=== PATIENT | male | born 1995 | race American Indian/Alaskan Native ===

== ENCOUNTER 2018-03-19 04:16 | Emergency (ER) | payer SELFPAY ==
[2018-03-19 04:33] VITALS: BP 92/61
== END 2018-03-19 07:18 | disposition left against medical advice (07) ==
LOC: ED 04:16
DX: H57.8 Other specified disorders of eye and adnexa (principal); Z53.21 Procedure and treatment not carried out due to patient leaving prior to being seen by health care provider

== ENCOUNTER 2018-03-23 16:49 | Emergency (ER) | payer SELFPAY ==
[2018-03-23 16:55] VITALS: BP 135/77
--- NOTE | 2018-03-23 20:38 | Emergency Department Report ---
ED Eye Problem HPI - General Chief complaint: Eye Problems Stated complaint: EYE INFECTION Time Seen by Provider: 03/23/18 20:16 Source: patient Mode of arrival: Ambulatory Limitations: No Limitations - History of Present Illness Initial comments: Patient is a 22-year-old -[place] male diagnosed with [facility] prescribed tobramycin eyedrops and I really do not start eyedrops until last night presents for increased pain irritation and purulent discharge noted on bilateral eyes patient didn't denies decreased vision there is no fever no chills and no trauma fall or injury or medication patient has not seen ophthalmology. MD chief complaint: eye pain, eye redness Onset/Timin -: days(s) Onset Description: gradual Location: left eye, both eyes Place: home If Injury: none Eye Symptoms: burning, redness, pain, itching, discharge, blurry vision (with mucus clears with wiping ) Severity: moderate Severity scale (0 -10): 5 If Pain, Quality: burning Consistency: constant Associated Symptoms: denies: headache, neck pain, nausea/vomiting, cough, rhinorrhea, fever, shortness of breath Treatments Prior to Arrival: OTC eye drops (tobramycin x 2 doses ) - Related Data Patient Tetanus UTD: Yes (1 yr ago ) Previous Rx's Medication Instructions Recorded Last Taken Type Cetirizine HCl [Zyrtec] 10 mg PO DAILY #30 tablet 03/23/18 Unknown Rx Ibuprofen 800 mg PO TID PRN #30 tablet 03/23/18 Unknown Rx Ofloxacin 0.3% [Floxin Otic] 2 drops OU Q3H #10 ml 03/23/18 Unknown Rx Allergies Allergy/AdvReac Type Severity Reaction Status Date / Time No Known Allergies Allergy Unverified 03/19/18 04:32 ED Review of Systems ROS: Stated complaint: EYE INFECTION Other details as noted in HPI Constitutional: denies: chills, fever Eyes: eye pain, eye discharge. denies: vision change ENT: denies: ear pain, throat pain Respiratory: denies: cough, shortness of breath, wheezing Cardiovascular: denies: chest pain, palpitations Endocrine: no symptoms reported Gastrointestinal: as per HPI Genitourinary: denies: urgency, dysuria Musculoskeletal: denies: back pain, joint swelling, arthralgia Skin: denies: rash, lesions Neurological: denies: headache, weakness, paresthesias Psychiatric: denies: anxiety, depression Hematological/Lymphatic: denies: easy bleeding, easy bruising ED Past Medical Hx - Past Medical History Hx Asthma: Yes Additional medical history: sleep apnea - Surgical History Additional Surgical History: adnoids - Social History Smoking Status: Never Smoker Substance Use Type: Marijuana - Medications Home Medications: Home Medications Medication Instructions Recorded Confirmed Last Taken Type Cetirizine HCl [Zyrtec] 10 mg PO DAILY #30 tablet 03/23/18 Unknown Rx Ibuprofen 800 mg PO TID PRN #30 tablet 03/23/18 Unknown Rx Ofloxacin 0.3% [Floxin Otic] 2 drops OU Q3H #10 ml 03/23/18 Unknown Rx ED Physical Exam - General Limitations: No Limitations General appearance: alert, in no apparent distress - Head Head exam: Present: atraumatic, normocephalic, normal inspection - Eye Eye exam: Present: PERRL, EOMI, conjunctival injection. Absent: periorbital swelling, periorbital tenderness Pupils: Present: normal accommodation - Expanded Eye Exam Expanded Eyelids: Normal Inspection: Right Pupils: Regular, Round: Bilateral, Reactive: Bilateral Sclera/Conjunctival: Injection: Bilateral, Exudate: Bilateral Visual acuity (R) = 20/: 30 Visual acuity (L) = 20/: 30 With correction: No - ENT ENT exam: Present: normal orophraynx, mucous membranes moist, TM's normal bilaterally, normal external ear exam - Neck Neck exam: Present: normal inspection, full ROM. Absent: tenderness, lymphadenopathy, thyromegaly - Respiratory Respiratory exam: Present: normal lung sounds bilaterally. Absent: respiratory distress, wheezes, stridor, chest wall tenderness - Cardiovascular Cardiovascular Exam: Present: regular rate, normal rhythm. Absent: systolic murmur, diastolic murmur, rubs, gallop - GI/Abdominal GI/Abdominal exam: Present: soft, normal bowel sounds - Rectal Rectal exam: Present: deferred - Extremities Exam Extremities exam: Present: normal inspection - Back Exam Back exam: Present: normal inspection, full ROM - Neurological Exam Neurological exam: Present: alert, oriented X3 - Psychiatric Psychiatric exam: Present: normal affect, normal mood - Skin Skin exam: Present: warm, dry, intact, normal color. Absent: rash ED Course Vital Signs 03/23/18 16:52 Temperature 98.2 F Pulse Rate 91 H Respiratory 18 Rate Blood Pressure 135/77 O2 Sat by Pulse 100 Oximetry ED Medical Decision Making - Medical Decision Making This is a acute conjunctivitis bilateral patient failed to follow treatment regimen visual acuity is 20/30 bilaterally noted yellow greenish purulent drainage erythema patient remains PERRLA EOMI no periorbital cellulitis no globe pain primary complaint is itching and burning and matted eyes and plan we' ll change antibiotic to Cipro ophthalmic Zyrtec ibuprofen by mouth when necessary pain patient alert directed to follow with ophthalmology will call in a.m. to confirm there are no other URI symptoms no fevers no chills no throat or ear pain Critical care attestation.: If time is entered above; I have spent that time in minutes in the direct care of this critically ill patient, excluding procedure time. ED Disposition Clinical Impression: Conjunctivitis Qualifiers: Conjunctivitis type: acute Acute conjunctivitis type: bacterial Laterality: bilateral Qualified Code(s): H10.33 - Unspecified acute conjunctivitis, bilateral Disposition: TO HOME OR SELFCARE Is pt being admited?: No Does the pt Need Aspirin: No Condition: Good Instructions: Conjunctivitis (ED) Prescriptions: Cetirizine HCl [Zyrtec] 10 mg PO DAILY #30 tablet Ibuprofen 800 mg PO TID PRN #30 tablet PRN Reason: Pain , Severe (7-10) Ofloxacin 0.3% [Floxin Otic] 2 drops OU Q3H #10 ml Referrals: BOB OHARA MD [Staff Physician] - 3-5 Days Forms: Work/School Release Form(ED) Time of Disposition: 20:45
[2018-03-23] MEDS ORDERED: MOTRIN PO ONE (20:39)
== END 2018-03-23 21:05 | disposition home or self-care (01) ==
LOC: ED 16:49
DX: H10.33 Unspecified acute conjunctivitis, bilateral (principal); J45.909 Unspecified asthma, uncomplicated; F12.10 Cannabis abuse, uncomplicated
CPT/HCPCS: 99283